=== PATIENT | female | born 1945 | race Caucasian/White ===

== ENCOUNTER 2024-10-29 01:18 | Inpatient (IN) | payer MEDICARE, OTHER ==
[~2024-10-29] VITALS: Ht 167.6 cm; Wt 70.9 kg
--- NOTE | 2024-10-29 01:40 | NUR ---
PT CARE ASSUMED AT THIS TIME
[2024-10-29 01:43] LABS: BASOPHILS # (AUTO) 0.01 K/uL (0.00-0.20); BASOPHILS % (AUTO) 0.1 % (0.0-5.0); EOSINOPHILS % (AUTO) 1.1 % (0.0-8.0); IMMATURE GRANULOCYTE ABSOLUTE 0.01 K/uL (0-1); LYMPHOCYTES # (AUTO) 1.2 K/uL (1.0-4.8); LYMPHOCYTES % (AUTO) 13.4 % (21.0-51.0); MEAN CORPUSCULAR HEMOGLOBIN 31.6 pg (27.0-33.0); MEAN CORPUSCULAR HGB CONC 33.4 g/dL (32.0-36.0); MEAN CORPUSCULAR VOLUME 94.5 fL (79-99); MONOCYTES # (AUTO) 0.6 K/uL (0.1-1.0); MONOCYTES % (AUTO) 6.4 % (3.0-13.0); NEUTROPHILS # (AUTO) 6.9 K/uL (1.8-7.7); NEUTROPHILS % (AUTO) 78.9 % (40.0-77.0); PLATELET COUNT (AUTO) 193 K/uL (130-400); RED BLOOD CELL COUNT(AUTO) 4.34 MIL/uL (4.00-5.50); RED CELL DISTRIBUTION WIDTH 13.8 % (11.0-15.5); WHITE BLOOD COUNT (AUTO) 8.7 K/uL (4.8-10.8)
[2024-10-29] MEDS: morPHINE 4 MG SYG IVP ONE ×2 (01:44→02:29)
--- NOTE | 2024-10-29 01:48 | ERN ---
ED Note History of Present Illness Stated Complaint: RUQ ABDOMINAL PAIN Chief Complaint: Abdominal Pain Time Seen by MD: 01:21 Dictation: The patient is a 79-year-old female patient, a winter resident of [place], with a medical history that includes gastroesophageal reflux disease, Hypertension and the presence of a heart pacemaker, arrived at the emergency department with the chief complaints of right upper quadrant abdominal pain that began three hours prior. The onset of the pain was sudden and characterized as sharp and shooting, with a severity rating of 9 out of 10. The patient noted that there were no factors that aggravated or alleviated the pain. She also reported no symptoms of nausea, vomiting, chest pain, or diarrhea, and she has no prior history of similar episodes or gallstones. Allergies: Coded Allergies: No Known Allergies (Unverified Allergy, Unknown, 10/29/24) Past Medical History Past Medical History: Cancer, GERD, High Cholesterol, Heart Disease, Hypertension Additional Past Medical Hx: HIATAL HERNIA, BREAST CA Surgical History: Pacer/AICD, Other Surgical History Other: MASTECTOMY-RIGHT, BREAST RECONSTRUCTION Review of System Dictation REVIEW OF SYSTEMS CONSTITUTIONAL: Denies fevers, chills, or night sweats. No unintentional weight loss reported. NEUROLOGICAL: Denies headache, amaurosis fugax, motor weakness, sensory deficit, vertigo/spinning sensation, gait abnormalities, or tremors. ENT: No hearing loss, otalgia, otorrhea, rhinitis, rhinorrhea, hoarseness, or sore throat. CARDIOVASCULAR: Denies any exertional angina, dyspnea on exertion, orthopnea, paroxysmal nocturnal dyspnea, palpitations, life-threatening arrhythmias, claudication. PULMONARY: Denies any shortness of breath, cough, phlegm/sputum, hemoptysis, pleuritic chest pain. SLEEP: Denies morning headaches, daytime somnolence or napping. Denies difficulty falling asleep, staying asleep, waking from sleep. Denies knowledge of snoring. GASTROINTESTINAL: RUQ abdominal pain, Denies any type of dysphagia to either liquids or solids. Denies nausea, vomiting, pyrosis, early satiety, diarrhea, constipation, or changes in stool consistency or caliber. Denies coffee-ground emesis, hematemesis, hematochezia, or melanotic stools. GENITOURINARY: Denies frequency, urgency, nocturia, hematuria or incontinence (Storage/Irritative symptoms.) Low urinary stream, straining to void, urinary intermittency or hesitancy, splitting of the voiding stream, terminal dribbling. ENDOCRINOLOGIC: Denies polyuria, polydipsia, polyphagia or heat/cold intolerances. HEMATOLOGIC: Denies thrombophilia/previous clots, or coagulopathy/bleeding disorders. ONCOLOGIC: Denies personal history of malignancy. DERMATOLOGIC: Denies rashes or pruritus. PSYCHIATRIC: Denies any suicidal or homicidal ideation. Denies hallucinations. Initial Vital Sign VS Vital Signs Date Time Temp Pulse Resp B/P (MAP) Pulse Ox O2 Delivery O2 Flow Rate FiO2 10/29/24 01:24 97.7 94 16 155/89 99 Room Air 0 10/29/24 01:40 21 Physical Exam Dictation PHYSICAL EXAM GENERAL APPEARANCE: The patient is awake, alert, and oriented, in no acute cardiopulmonary distress. NEUROLOGICAL: Cranial nerves II-XII grossly intact. Motor is 5/5 in bilateral upper and lower extremities proximal to distal. No sensory deficits. HEENT: Face is symmetric. Pupils are equal and reactive. Extraocular movements are intact. NECK: Supple. No JVD. No thyromegaly. No submental, submandibular, pre- /postauricular, occipital or supraclavicular lymphadenopathy. CHEST: Normal chest expansion. No Telemetry. LUNGS: Absence of any rales, rhonchi or any wheezing. CARDIOVASCULAR: Regular. S1 and S2 normal. No appreciable rubs, murmurs or gallops. ABDOMEN: Gilbert's sign positive, Tenderness present over RUQ, and nondistended. There is no rebound, voluntary guarding, or rigidity. : Deferred. No Ignacio. EXTREMITIES: Non-edematous and not cyanotic. No clubbing. Good capillary refill. SKIN: No skin breakdown. Results (Laboratory/Radiology) Laboratory/Radiology Laboratory Tests Test 10/29/24 01:37 White Blood Count 8.7 K/uL (4.8-10.8) Red Blood Count 4.34 MIL/uL (4.00-5.50) Hemoglobin 13.7 g/dL (12.0-16.0) Hematocrit 41.0 % (36-48) Mean Corpuscular Volume 94.5 fL (79-99) Mean Corpuscular Hemoglobin 31.6 pg (27.0-33.0) Mean Corpuscular Hemoglobin Concent 33.4 g/dL (32.0-36.0) Red Cell Distribution Width 13.8 % (11.0-15.5) Platelet Count 193 K/uL (130-400) Mean Platelet Volume 9.2 fL (7.5-10.5) Immature Granulocyte % (Auto) 0.1 % (0-1) Neutrophils (%) (Auto) 78.9 % (40.0-77.0) H Lymphocytes (%) (Auto) 13.4 % (21.0-51.0) L Monocytes (%) (Auto) 6.4 % (3.0-13.0) Eosinophils (%) (Auto) 1.1 % (0.0-8.0) Basophils (%) (Auto) 0.1 % (0.0-5.0) Neutrophils # (Auto) 6.9 K/uL (1.8-7.7) Lymphocytes # (Auto) 1.2 K/uL (1.0-4.8) Monocytes # (Auto) 0.6 K/uL (0.1-1.0) Eosinophils # (Auto) 0.10 K/uL (0.00-0.70) Basophils # (Auto) 0.01 K/uL (0.00-0.20) Absolute Immature Granulocyte (auto 0.01 K/uL (0-1) Nucleated Red Blood Cells 0.0 % (0.0-0.19) Sodium Level 143 mmol/L (136-145) Potassium Level 4.0 mmol/L (3.5-5.1) Chloride Level 105 mmol/L (101-111) Carbon Dioxide Level 29 mmol/L (21-32) Blood Urea Nitrogen 23 mg/dL (7-18) H Creatinine 0.7 mg/dL (0.5-1.0) Glomerular Filtration Rate Calc 87 mL/min (>90) Random Glucose 109 mg/dL (70-105) H Total Calcium 9.5 mg/dL (8.5-10.1) Total Bilirubin 0.6 mg/dL (0.2-1.0) Direct Bilirubin 0.2 mg/dL (0.0-0.3) Aspartate Amino Transf (AST/SGOT) 21 U/L (10-37) Alanine Aminotransferase (ALT/SGPT) 26 U/L (12-78) Alkaline Phosphatase 90 U/L (50-136) Total Protein 7.4 g/dL (6.0-8.3) Albumin 4.3 g/dL (3.5-5.0) Lipase 20 U/L (16-77) ED Course ED Course Orders Procedure Category Date Status Time Morphine 4mg Syg PHA 10/29/24 Complete (Morphine 4mg Syg) 01:30 Us Abdominal Ruq\Ltd US 10/29/24 Taken 01:27 Cbc With Differential LAB 10/29/24 Complete 01:28 Basic Metabolic Panel LAB 10/29/24 Complete 01:28 Hepatic Function Panel LAB 10/29/24 Complete 01:28 Lipase LAB 10/29/24 Complete 01:28 Urinalysis Profile LAB 10/29/24 Logged 01:29 Keep Patient Npo CPOE 10/29/24 Transmitted 01:30 0.9% Nacl 500ml PHA 10/29/24 Complete Iv.Soln (Ns 500ml 02:30 Morphine 4mg Syg PHA 10/29/24 Complete (Morphine 4mg Syg) 02:30 Fentanyl Citrate Pf PHA 10/29/24 Complete 0.05 Mg/Ml (Fentanyl 04:00 Keep Patient Npo CPOE 10/29/24 Transmitted 04:00 Basic Metabolic Panel LAB 10/29/24 Logged 04:00 Cbc With Differential LAB 10/29/24 Logged 04:00 Magnesium LAB 10/29/24 Logged 04:00 Phosphorus LAB 10/29/24 Logged 04:00 Pt And Ptt LAB 10/29/24 Logged 04:00 Type And Screen BBK 10/29/24 In Process 04:00 General Surgery CONPHYSVC 10/29/24 Transmitted Consult 08:00 Acetaminophen 650mg PHA 10/29/24 In Process Supp (Tylenol 650mg 04:30 Ondansetron 4mg Inj PHA 10/29/24 In Process (Zofran 4mg Inj) 04:30 Lactated Ringers PHA 10/29/24 In Process 1000ml (Lactated 04:30 Hydralazine 20mg Inj PHA 10/29/24 In Process (Apresoline 20mg In 04:30 Famotidine 20mg Vial PHA 10/29/24 In Process (Pepcid 20mg Vial) 09:00 Admit Orders ADM 10/29/24 Transmitted 04:07 Activity: Ad Heidi CPOE 10/29/24 Transmitted 04:07 Apply Knee High Teds CPOE 10/29/24 Transmitted 04:07 Apply Scds CPOE 10/29/24 Transmitted 04:07 Condition: CPOE 10/29/24 Transmitted 04:07 Nurse To Enter Home CPOE 10/29/24 Transmitted Medication 04:07 Oxygen By Nc/Pulse Ox CPOE 10/29/24 Transmitted 04:07 Vital Signs(Adult CPOE 10/29/24 Transmitted Hospitalist) 04:07 Morphine 2mg Syg PHA 10/29/24 In Process (Morphine 2mg Syg) 04:30 Current Medications Medications (Trade) Dose Ordered Sig/Natalie Route PRN Reason Start Time Stop Time Status Last Admin Dose Admin Fentanyl Citrate (FENTanyl CITRate PF 50 MCG/ 1 ML 2ML VIAL) 50 mcg ONCE ONCE IVP 10/29/24 04:00 10/29/24 04:01 DC 10/29/24 03:48 Morphine Sulfate (morPHINE 4MG SYG) 4 mg ONCE ONCE IVP 10/29/24 01:30 10/29/24 01:31 DC 10/29/24 01:44 Morphine Sulfate (morPHINE 4MG SYG) 4 mg ONCE ONCE IVP 10/29/24 02:30 10/29/24 02:31 DC 10/29/24 02:29 Sodium Chloride 500 ml @ 0 mls/hr ONCE ONCE IV 10/29/24 02:30 10/29/24 02:31 DC 10/29/24 02:28 Vital Signs Date Time Temp Pulse Resp B/P (MAP) Pulse Ox O2 Delivery O2 Flow Rate FiO2 10/29/24 04:31 98.4 66 17 111/64 96 Room Air* 0 21 10/29/24 02:43 70 17 125/64 98 Room Air* 0 21 10/29/24 01:40 97.9 69 20 125/73 98 Room Air* 0 21 10/29/24 01:24 97.7 94 16 155/89 99 Room Air 0 01:15 The patient was examined in ED 14. She appears in moderate distress, holding her abdomen and saying that she has a lot of pain. Her vitals are temperature 97.7, pulse rate 94, respiratory rate 16, blood pressure 155/89. Based on the presentation, her symptoms are likely secondary to cholecystitis. We will order right upper quadrant ultrasound and basic labs to confirm the diagnosis. In the meantime we will give IV morphine to help with the pain. We will keep the patient NPO until further recommendations are made. We will continue closely monitor the patient. 03:40- Laboratory results indicated no significant abnormalities. Liver function tests are within normal limits. Abdominal ultrasound indicates the presence of possible gallstones, with a limited view and no evidence of pericholecystic fluid collection. We administered two doses of Morphine at 4 mg each; however, the patient continues to report pain. We will now provide Fentanyl for pain management. The patient remains in discomfort and will need additional diagnostic studies, including a HIDA scan. At this juncture, it appears that inpatient hospitalization will be necessary. The plan was discussed with the mukul lind and she verbalizes understanding. The on-call hospitalist has been notified and has agreed to the admission. Medical Decision Making [facility] MDM Differential diagnosis: Cholelithiasis, RUQ pain Rationale: Tests considered and ordered secondary to shared decision making include: Previous outside records reviewed: Old ER visits. Risk of complication and/or morbidity or mortality of patient management: None Medications-Per medication reconciliation Need for hospitalization: Patient does meet the criteria for hospitalization. Need for emergency major/minor surgery: No There are no social concerns with this patient. Prescription drug management Prescriptions will include symptomatic care Patient's prior external medical records from other ER visits were reviewed by me as indicated. Prior testing and results from previous visits were reviewed. Prior tests were taken into account with medical decision making and resource utilization, independent historian/historians were used to obtain complete medical history. I independently interpreted the test that were performed, results were reviewed by me and considered findings on radiology if ordered. DX & DISP Disposition: Inpatient Departure Impression: Primary Impression: Gallstones Additional Impression: RUQ abdominal pain Condition: Stable Referrals: SELF,REFERRAL (PCP) I have reviewed the case, and I agree with, Diagnosis and Plan I have examined patient, & reviewed all documents, & agreed W/ the Diagnosis, and Plan ATTESTATION BY PHYSICIAN I have seen and examined the patient. I reviewed the documentation, medical decision making, and treatment plan as noted by the resident provider above. I agree with the findings and plan of care. Nayla Greenwood MD, MANALI MD Oct 29, 2024 01:48 GEOVANNA SIERRA DO Oct 29, 2024 04:47
[2024-10-29 01:52] LABS: CREATININE 0.7 mg/dL (0.5-1.0)
[2024-10-29 01:56] LABS: ALBUMIN 4.3 g/dL (3.5-5.0); BILIRUBIN,DIRECT 0.2 mg/dL (0.0-0.3); BILIRUBIN,TOTAL 0.6 mg/dL (0.2-1.0); TOTAL PROTEIN, SERUM 7.4 g/dL (6.0-8.3)
[2024-10-29] MEDS: 0.9% NACL 500ML IV.SOLN 500 ML IV ONE (02:28)
[2024-10-29] MEDS: FENTanyl CITRate PF 50 MCG/1 ML 2ML VIAL IVP ONE (03:48)
--- NOTE | 2024-10-29 04:06 | HP ---
History of Present Illness Reason for Visit: Abdominal pain History of Present Illness Ms. Hines is an 79-year-old female that was seen and examined today on 10/29/2024. Patient is a good historian and personal health. Patient states that she came to the emergency department with a chief complaint of abdominal pain. Location is right upper quadrant. Duration is constant. Character is described as sharp and pads progressed to stabbing. Symptoms are aggravated with eating. There was no alleviating factors. Patient denies any associated nausea or vomiting. Today in the emergency department CBC unremarkable, chemistry unremarkable, no urinalysis has been collected or sent to lab. Abdominal ultrasound is pending radiology interpretation however preliminary report shows cholelithiasis. Emergency room physician recommended that patient be admitted so she could be evaluated by surgeon. Patient actually prefers to have surgery back home in [place] and she is leaving on 11/06/2024. Past Medical History ADDITIONAL PAST MEDICAL HISTORY: [GERD, hyperlipidemia, CAD, hypertension, hiatal hernia, breast CA] SOCIAL HISTORY: [Negative for smoking. Patient drinks two glasses of wine that are 4 oz each every other day. Patient denies drug use.] SURGICAL HISTORY: [AICD, mastectomy right, breast reconstruction] Review of Systems General: No Fever, No Chills, No Night Sweats, No Fatigue, No Malaise, No Appetite, No Other HEENT: No Head Aches, No Visual Changes, No Eye Pain, No Ear Pain, No Dysphasia, No Sinus Congestion, No Post Nasal Drip, No Sore Throat, No Other Pulmonary: No Dyspnea, No Cough, No Pleuritic Chest Pain, No Other Cardiovascular: No: Chest Pain, Palpitations, Orthopnea, Paroxysmal Noc. Dyspnea, Edema, Lt Headedness, Other Gastrointestinal: Abdominal Pain; No: Nausea, Vomiting, Diarrhea, Constipation, Melena, Hematochezia, Other Genitourinary: No Dysuria, No Frequency, No Incontinence, No Hematuria, No Retention, No Other Musculoskeletal: No: other, neck pain, shoulder pain, arm pain, back pain, hand pain, leg pain, foot pain Skin: No Urticaria, No Rash, No Other Neurological: No: Weakness, Numbness, Incoordination, Change in speech, Confusion, Seizures, Other Allergies: Coded Allergies: No Known Allergies (Unverified Allergy, Unknown, 10/29/24) Scheduled Amlodipine Besylate (Amlodipine Besylate), 1 TAB PO DAILY, (Reported) Atorvastatin Calcium (Lipitor), 1 TAB PO DAILY, (Reported) Esomeprazole Magnesium (Esomeprazole Magnesium), 40 MG PO BID, (Reported) Tolterodine Tartrate (Tolterodine Tartrate ER), 4 MG PO DAILY, (Reported) Trazodone HCl (Trazodone HCl), 1 TAB PO HS, (Reported) Exam Vital Signs Vital Signs Date Time Temp Pulse Resp B/P (MAP) Pulse Ox O2 Delivery O2 Flow Rate FiO2 10/29/24 02:43 70 17 125/64 98 Room Air* 0 21 10/29/24 01:40 97.9 General Appearance: Alert, Oriented X3, Cooperative, mild distress HEENT: Atraumatic, EOMI Respiratory: Clear to auscultation, Normal air movement, NL respiratory effort Cardiovascular: Regular rate, Regular rhythm, Normal S1, Normal S2 Abdominal: Normal bowel sounds, Soft, No tenderness Extremities: No edema Skin: No significant lesion Neuro: Normal speech, Strength at 5/5 X4 ext, Sensation intact, Cranial nerves 3-12 NL Psych/Mental Status: Mental status NL, Mood NL, Thoughts/Content NL Assessment/Plan ASSESSMENT: [ Cholelithiasis Hypertension] PLAN: [ Admit patient to medical-surgical floor as inpatient status. Patient will be followed by General surgery Service. Keep patient NPO. Check preprocedure labs, CBC, BMP, magnesium, phosphorus, PTT, UA, type and screen, EKG, CXR As needed analgesia with morphine. IV fluid maintenance therapy lactated Ringer's at 75 mL/HR. Consider resuming home medications once they are reconciled. For now, Hydralazine 10 mg IV every 4 hours for systolic blood pressure greater than 160 mmHg GI prophylaxis, famotidine DVT prophylaxis, Joshua's and SCDs ADVANCED CARE PLANNING 1. Which of the following were discussed? Hospice Care - Yes Therapeutic options - Yes Advance Directives - Yes- patient states she does not have any advance directives in place at this time, however her daughter Noemí stewart can make decisions for her if she becomes unable. Other discussions - patient wishes to remain a full code at this time 2. Discussed with who? Patient 3. Voluntary nature of this service was explained to the patient? Yes 4. Amount of time spent - ____ 16 minutes ___ 5. Reviewed by Physician? (if this service was performed by NPP) Yes This document was generated in part using voice recognition software, occasional wrong word or sound alike substitutions may have occurred due to the inherent limitations of voice recognition software. Read the chart carefully and recognize using context, where the substitutions have occurred. Although every effort was made to edit the content, stone setter metal optical frames and typing errors may occur ADDENDUM: ATTENDING PHYSICIAN ATTESTATION: I have seen and discussed this patient with the midlevel and I agree with their plan. See my addendum for updates to the medical plan MD TIMOTHY Villanueva JOE D [facility] Oct 29, 2024 04:06 BIPIN ISSA MD Oct 29, 2024 16:42
[2024-10-29] MEDS: LACTATED RINGERS 1000ML 1,000 ML IV SCH (04:26)
[2024-10-29] MEDS ORDERED: acetaMINOPHEN 650 MG SUPPOSITORY RC PRN (04:30)
[2024-10-29] MEDS ORDERED: ondanSETRON 4MG INJ IV PRN (04:30)
[2024-10-29] MEDS ORDERED: hydrALAZine 20MG/ML VIAL IV PRN (04:30)
[2024-10-29 04:55] VITALS: BP 143/77; PULSE 75; RESP 19; TEMP 97.8
[2024-10-29 06:10] LABS: BASOPHILS # (AUTO) 0.01 K/uL (0.00-0.20); BASOPHILS % (AUTO) 0.1 % (0.0-5.0); EOSINOPHILS # (AUTO) 0.07 K/uL (0.00-0.70); HEMATOCRIT 34.8 % (36-48); IMMATURE GRANULOCYTE ABSOLUTE 0.02 K/uL (0-1); LYMPHOCYTES % (AUTO) 14.2 % (21.0-51.0); MEAN CORPUSCULAR HEMOGLOBIN 31.9 pg (27.0-33.0); MEAN CORPUSCULAR HGB CONC 33.3 g/dL (32.0-36.0); MEAN CORPUSCULAR VOLUME 95.6 fL (79-99); MONOCYTES # (AUTO) 0.6 K/uL (0.1-1.0); MONOCYTES % (AUTO) 9.3 % (3.0-13.0); NEUTROPHILS # (AUTO) 5.1 K/uL (1.8-7.7); NEUTROPHILS % (AUTO) 75.1 % (40.0-77.0); PLATELET COUNT (AUTO) 139 K/uL (130-400); RED BLOOD CELL COUNT(AUTO) 3.64 MIL/uL (4.00-5.50); RED CELL DISTRIBUTION WIDTH 13.8 % (11.0-15.5); WHITE BLOOD COUNT (AUTO) 6.8 K/uL (4.8-10.8)
[2024-10-29] MEDS ORDERED: AMLO-258 PO (06:13)
[2024-10-29] MEDS ORDERED: ATOR10 PO (06:13)
[2024-10-29] MEDS ORDERED: ESOM40CA66 PO (06:14)
[2024-10-29] MEDS ORDERED: TOLT4CAP27 PO (06:16)
[2024-10-29 06:20] VITALS: O2SAT 99
[2024-10-29 06:25] LABS: CREATININE 0.6 mg/dL (0.5-1.0); MAGNESIUM 1.8 mg/dL (1.80-2.40); PHOSPHORUS 4.1 mg/dL (2.5-4.9)
[2024-10-29 06:26] LABS: INR 0.96 (0.85-1.15); PROTHROMBIN TIME 10.8 SEC (9.6-11.6)
[2024-10-29 06:28] LABS: PARTIAL THROMBOPLASTIN TIME 25.8 SEC (26.3-35.5)
[2024-10-29] MEDS: FAMOTIDINE 20MG VIAL IV SCH (07:48)
[2024-10-29 08:00] VITALS: BP 145/74; PULSE 65; RESP 18; TEMP 97.7
--- NOTE | 2024-10-29 08:29 | HMCIMG ---
3. Otherwise unremarkable exam although the pancreas was not visualized. HISTORY: RUQ pain COMPARISON: None FINDINGS: There is mild fatty infiltration of the liver. There are no focal liver masses. The liver is not enlarged.Gallbladder is nondistended. There is no wall thickening or edema. There is some acoustical shadowing from the posterior wall of the gallbladder causing difficulty in excluding small stones. Common duct is normal at 2 mm.. Right kidney is normal with no evidence of mass, hydronephrosis or stone.The pancreas is obscured by overlying bowel gas. IMPRESSION: 1. Mild hepatic steatosis. 2. No definite stones identified, there is acoustical shadowing from the posterior wall of the gallbladder suggesting possible very small stones, there is no wall thickening or edema.
--- NOTE | 2024-10-29 08:44 | NUR ---
GENERAL SURGERY CONSULT SPOKE WITH DR. SCHMITT'S OFFICE REGARDING NEW CONSULT FOR PATIENT. PROVIDED NECESSARY INFORMATION AND CALLBACK NUMBER TO OFFICE. PER OFFICE STAFF, DR. SCHMITT WILL BE PAGED. PENDING CALLBACK FROM DR. SCHMITT.
[2024-10-29] MEDS: morPHINE 2 MG SYG IVP PRN (09:56)
--- NOTE | 2024-10-29 10:30 | NUR ---
DCP Patient states visiting friends at [place] from [place], currently staying at a two story condo but has a room downstairs and a walk in shower with Flaco Connors, Boyfriend [phone]. She was planning on returning home tomorrow. States retired, remains independent usually lives alone and drives self. States able to complete ADL's on her own. Denies use of medical devices, other than hearing aids. Denies home health services, provider services or dialysis. PCP - In [place], Negin Patino [phone] Pharmacy - [facility]. Upon discharge, Flaco Connors, Boyfriend [phone] back to the condo. In case of an emergency, contact Noemí Gayle, daughter [phone] and she can also contact her son, who may be able to make decisions, if needed. At this time, does not foresee additional needs or services. Requests to have insurance verified for coverage, notified assigned CM. Addendum: 10/29/24 at 1043 by NATALIIA JETT RN CM Amended: Links added.
[2024-10-29] MEDS: ketOROlac 15MG/ML VIAL (15MG/ML) IV PRN (11:05)
[2024-10-29 12:00] VITALS: BP 124/76; PULSE 71; RESP 20; TEMP 98.4
--- NOTE | 2024-10-29 12:16 | HMCIMG ---
CT CHEST ABDOMEN W/O CONTRAST REASON: RIGHT UPPER QUADRANT PAIN, CONCERN FOR BONE METS, INCLUDE BONE WINDOW COMPARISON: None TECHNIQUE: Axial images are obtained from thoracic inlet through the iliac crests without oral or IV contrast. FINDINGS: Lungs are clear. There are no pulmonary nodules. There is normal pulmonary interstitial pattern. Hilar and mediastinal structures appear unremarkable. There are implants in place without evidence of rupture. Chest wall structures appear otherwise normal. This includes normal appearing osseous structures, the sternum, the thoracic vertebral bodies and the ribs appear unremarkable. There are no focal liver lesions. Spleen, kidneys, pancreas and gallbladder appear unremarkable as do visualized bowel loops. Anterior abdominal wall appears intact. Visualized lumbar vertebral bodies are unremarkable. There are no focal osseous lesions to suggest metastatic disease. IMPRESSION: 1. Unremarkable noncontrast CT chest and abdomen. 2. Specific attention shows no evidence of metastatic disease.
--- NOTE | 2024-10-29 14:14 | NUR ---
Patient requested insurance verification due to being from out of state and in case she needed additional procedures and treatment performed. Referred her to [employer] [phone]. notified Sangeetha GONZALEZ of patient information and request. Addendum: 10/29/24 at 1423 by NATALIIA JETT RN CM Amended: Links added.
[2024-10-29] MEDS ORDERED: TRAZ-185 PO (15:58)
[2024-10-29 16:00] VITALS: BP 136/88; PULSE 70; RESP 20; TEMP 97.9
[2024-10-29] MEDS: MAGNESIUM 2GM PREMIX 50ML 50 ML IV PRN (16:38)
--- NOTE | 2024-10-29 17:12 | CONS ---
CONSULT NOTE: Consulting physician:Dr Benitez Consulting service: General surgery Reason for consultation: Right upper quadrant pain History of present illness: This 79-year-old female with a medical history listed below who has been consulted to surgery after presenting to the hospital with a chief complaint of abdominal pain. Patient reports that pain began yesterday evening. Patient reports pain as a sharp stabbing pain. Patient reports that pain aggravated with meal. Patient with no previous abdominal surgeries reported. Patient presented to the hospital and upon workup imaging performed concern for possible cholelithiasis. Patient also send for CT with no real concerns noted. On physical exam patient continues with the upper quadrant pain requiring medication for management. LFTs unremarkable. Patient currently NPO. Family at bedside Medical history: ADDITIONAL PAST MEDICAL HISTORY: GERD, hyperlipidemia, CAD, hypertension, hiatal hernia, breast CA SOCIAL HISTORY: Negative for smoking. Patient drinks two glasses of wine that are 4 oz each every other day. Patient denies drug use. SURGICAL HISTORY: AICD, mastectomy right, breast reconstruction Review of systems: General: No Fever, No Chills, No Night Sweats, No Fatigue, No Malaise, No Appetite, No Other HEENT: No Head Aches, No Visual Changes, No Eye Pain, No Ear Pain, No Dysphasia, No Sinus Congestion, No Post Nasal Drip, No Sore Throat, No Other Pulmonary: No Dyspnea, No Cough, No Pleuritic Chest Pain, No Other Cardiovascular: No: Chest Pain, Palpitations, Orthopnea, Paroxysmal No Dyspnea, Edema, Lt Headedness, Other Gastrointestinal: No: Nausea, Vomiting, Diarrhea, Constipation, Melena, Hematochezia, Other Genitourinary: No Dysuria, No Frequency, No Incontinence, No Hematuria, No Retention, No Other Musculoskeletal: No: other, neck pain, shoulder pain, arm pain, back pain, hand pain, leg pain, foot pain Skin: No Urticaria, No Rash, No Other Neurological: No: Weakness, Numbness, Incoordination, Change in speech, Confusion, Seizures, Other Physical exam: General: Awake alert and oriented Heart: Regular rate and rhythm} Lungs: [Clear to auscultation no distress Abdomen: Continued right upper quadrant pain with flank pain Assessment: This is a 79-year-old female with unknown etiology of right upper quadrant pain Plan: At this point in time with negative CT and ultrasound we will order HIDA scan to rule out any further concerns for acute cholecystitis with the patient's continued right upper quadrant pain Patient to remain NPO with imaging to be completed today If unable to be completed today patient to be allowed clear liquid diet and NPO at midnight for preparation for study to be performed tomorrow Patient to continue with IV fluids and current pain management Doctor Leeroy to be updated in patient's status and surgical team to follow patient closely DALE MCFARLAND Jr. Oct 29, 2024 17:12
[2024-10-29 20:00] VITALS: BP 119/60; PULSE 69; RESP 18; TEMP 98.7
[2024-10-29] MEDS: trAZOdone HCL 50 MG TAB PO SCH (21:23)
[2024-10-30] VITALS: BP 130/72; PULSE 73; RESP 18; TEMP 98
[2024-10-30 04:00] VITALS: BP 126/71; PULSE 71; RESP 18; TEMP 98.1
[2024-10-30 08:00] VITALS: BP 140/77; PULSE 71; RESP 18; TEMP 97.9
--- NOTE | 2024-10-30 08:43 | HMCIMG ---
NM HIDA/HEPATOBILI W/ PHARMACO REASON: ABDOMINAL PAIN COMPARISON: None TECHNIQUE: Routine hepatobiliary scan images were acquired following injection of 7 mCi technetium 99m Choletec. Gallbladder ejection fraction was performed following administration of 1.4 mcg CCK. FINDINGS: There is prompt hepatic parenchymal uptake. There is prompt excretion of the common duct and gallbladder. There is near complete clearing of hepatic activity by one hour. These findings constitute a normal hepatobiliary scan. Gallbladder ejection time activity curve yields a 16% ejection fraction. This is abnormal, lower limit of normal is 35%. IMPRESSION: 1. Normal hepatobiliary scan. 2. Abnormal ejection fraction of 16%.
[2024-10-30 09:18] VITALS: O2SAT 96
[2024-10-30] MEDS: atorVAStatin 10 MG TABLET PO SCH (09:18)
[2024-10-30] MEDS: amLODIPine 5 MG TAB PO SCH (09:18)
[2024-10-30 12:00] VITALS: BP 145/76; PULSE 75; RESP 18; TEMP 97.6
[2024-10-30] MEDS: acetaMINOPHEN 325 MG TAB PO PRN (13:06)
--- NOTE | 2024-10-30 14:55 | PN ---
GENERAL SURGERY PROGRESS NOTE Date/Time Patient Seen: 10/30/24 1300 Problem List: right rib pain Interval History: Patient reports that her pain has improved. She is tolerating a diet. Current Medications Medications (Trade) Dose Ordered Sig/Natalie Route Start Time Stop Time Status Last Admin Dose Admin Amlodipine Besylate (NorvASC 5MG TAB) 10 mg DAILY PO 10/30/24 09:00 11/29/24 08:59 10/30/24 09:18 10 MG Atorvastatin Calcium (LIPItor 10MG) 10 mg DAILY PO 10/30/24 09:00 10/30/24 10:36 DC 10/30/24 09:18 10 MG Atorvastatin Calcium (LIPItor 10MG) 10 mg HS PO 10/31/24 21:00 11/29/24 08:59 Famotidine (Pepcid 20mg Vial) 20 mg DAILY IV 10/29/24 09:00 11/28/24 08:59 10/30/24 09:18 20 MG Lactated Ringer's 1,000 ml @ 75 mls/hr [id number] IV 10/29/24 04:30 11/28/24 04:29 10/29/24 04:26 75 MLS/HR Lidocaine (Lidocaine Patch 4%) 1 each DAILY TP 10/30/24 15:00 11/29/24 14:59 Trazodone HCl (DesyREL/OlepTRO) 50 mg HS PO 10/29/24 21:00 11/28/24 20:59 10/29/24 21:23 50 MG Physical Examination: GENERAL: [No acute distress.] HEAD: [Normal with no signs of head trauma.] EYES: [PERRLA, EOMI, conjunctiva and sclera normal.] LUNGS: Respirations non-labored HEART: Regular rate and rhythm ABD: Soft, non-tender, non-distended, no rebound or guarding, right ribs with point tenderness : [Not examined] EXT: [No clubbing, cyanosis or edema.] SKIN: [No rashes or lesions noted.] NEURO: [Awake, alert, and oriented x3. No focal sensory or strength deficits noted.] Vital Signs (last 8hr) Date Time Temp Pulse Resp B/P (MAP) Pulse Ox O2 Delivery O2 Flow Rate FiO2 10/30/24 12:00 97.5 75 18 145/76 97 Room Air 2/21/25 08:00 97.9 71 18 140/77 96 Room Air Laboratory: Hematology Labs: Test 10/29/24 06:01 Range/Units White Blood Count 6.8 4.8-10.8 K/uL Red Blood Count 3.64 L 4.00-5.50 MIL/uL Hemoglobin 11.6 L 12.0-16.0 g/dL Hematocrit 34.8 L 36-48 % Mean Corpuscular Volume 95.6 79-99 fL Mean Corpuscular Hemoglobin 31.9 27.0-33.0 pg Mean Corpuscular Hemoglobin Concent 33.3 32.0-36.0 g/dL Red Cell Distribution Width 13.8 11.0-15.5 % Platelet Count 139 # 130-400 K/uL Mean Platelet Volume 9.1 7.5-10.5 fL Immature Granulocyte % (Auto) 0.3 0-1 % Neutrophils (%) (Auto) 75.1 40.0-77.0 % Lymphocytes (%) (Auto) 14.2 L 21.0-51.0 % Monocytes (%) (Auto) 9.3 3.0-13.0 % Eosinophils (%) (Auto) 1.0 0.0-8.0 % Basophils (%) (Auto) 0.1 0.0-5.0 % Neutrophils # (Auto) 5.1 1.8-7.7 K/uL Lymphocytes # (Auto) 1.0 1.0-4.8 K/uL Monocytes # (Auto) 0.6 0.1-1.0 K/uL Eosinophils # (Auto) 0.07 0.00-0.70 K/uL Basophils # (Auto) 0.01 0.00-0.20 K/uL Absolute Immature Granulocyte (auto 0.02 0-1 K/uL Nucleated Red Blood Cells 0.0 0.0-0.19 % Chemistry Labs: Test 10/29/24 06:01 10/29/24 01:37 Range/Units Sodium Level 144 136-145 mmol/L Potassium Level 4.0 3.5-5.1 mmol/L Chloride Level 110 101-111 mmol/L Carbon Dioxide Level 28 21-32 mmol/L Blood Urea Nitrogen 20 H 7-18 mg/dL Creatinine 0.6 0.5-1.0 mg/dL Glomerular Filtration Rate Calc 90 >90 mL/min Random Glucose 102 70-105 mg/dL Total Calcium 8.5 8.5-10.1 mg/dL Phosphorus Level 4.1 2.5-4.9 mg/dL Magnesium Level 1.80 1.80-2.40 mg/dL Total Bilirubin 0.6 0.2-1.0 mg/dL Direct Bilirubin 0.2 0.0-0.3 mg/dL Aspartate Amino Transf (AST/SGOT) 21 10-37 U/L Alanine Aminotransferase (ALT/SGPT) 26 12-78 U/L Alkaline Phosphatase 90 50-136 U/L Total Protein 7.4 6.0-8.3 g/dL Albumin 4.3 3.5-5.0 g/dL Lipase 20 16-77 U/L Coagulation Labs: Test 10/29/24 06:01 Range/Units Prothrombin Time 10.8 9.6-11.6 SEC Prothromb Time International Ratio 0.96 0.85-1.15 Activated Partial Thromboplast Time 25.8 L 26.3-35.5 SEC Diagnostics / Radiology: PATIENT: HENRRY BURRIS MR#: [id number] : 1945 SEX: F AGE: 79 LOCATION: [facility] ORDER 44 STATUS: ADM IN REPORT#: [id number] SERVICE 41 REASON: ABDOMINAL PAIN ORDERING PHYSICIAN: DALE MCFARLAND Jr. PROCEDURE: HIDA PHARM - NM HIDA/HEPATOBILI W/ PHARMACO NM HIDA/HEPATOBILI W/ PHARMACO REASON: ABDOMINAL PAIN COMPARISON: None TECHNIQUE: Routine hepatobiliary scan images were acquired following injection of 7 mCi technetium 99m Choletec. Gallbladder ejection fraction was performed following administration of 1.4 mcg CCK. FINDINGS: There is prompt hepatic parenchymal uptake. There is prompt excretion of the common duct and gallbladder. There is near complete clearing of hepatic activity by one hour. These findings constitute a normal hepatobiliary scan. Gallbladder ejection time activity curve yields a 16% ejection fraction. This is abnormal, lower limit of normal is 35%. IMPRESSION: 1. Normal hepatobiliary scan. 2. Abnormal ejection fraction of 16%. DICTATED BY: INOCENCIO WERNER MD DATE: 10/30/2440 ELECTRONICALLY SIGNED BY: INOCENCIO WERNER MD DATE: 10/30/2443 PATIENT: HENRRY BURRIS MR#: [id number] : 1945 SEX: F AGE: 79 LOCATION: [facility] ORDER 105 STATUS: ADM IN REPORT#: [id number] SERVICE [id number] REASON: RIGHT UPPER QUADRANT PAIN, CONCERN FOR BONE METS, INCLUDE BONE WINDOW ORDERING PHYSICIAN: BIPIN ISSA MD PROCEDURE: CHESTAB WO - CT CHEST ABDOMEN W/O CONTRAST CT CHEST ABDOMEN W/O CONTRAST REASON: RIGHT UPPER QUADRANT PAIN, CONCERN FOR BONE METS, INCLUDE BONE WINDOW COMPARISON: None TECHNIQUE: Axial images are obtained from thoracic inlet through the iliac crests without oral or IV contrast. FINDINGS: Lungs are clear. There are no pulmonary nodules. There is normal pulmonary interstitial pattern. Hilar and mediastinal structures appear unremarkable. There are implants in place without evidence of rupture. Chest wall structures appear otherwise normal. This includes normal appearing osseous structures, the sternum, the thoracic vertebral bodies and the ribs appear unremarkable. There are no focal liver lesions. Spleen, kidneys, pancreas and gallbladder appear unremarkable as do visualized bowel loops. Anterior abdominal wall appears intact. Visualized lumbar vertebral bodies are unremarkable. There are no focal osseous lesions to suggest metastatic disease. IMPRESSION: 1. Unremarkable noncontrast CT chest and abdomen. 2. Specific attention shows no evidence of metastatic disease. DICTATED BY: INOCENCIO WERNER MD DATE: 10/29/24 1212 ELECTRONICALLY SIGNED BY: INOCENCIO WERNER MD DATE: 10/29/246 Impression and Plan: This is an 79 year old female with right rib pain likely due to muscle strain. Improving. HIDA scan performed this morning showed decreased EF of gallbladder would not likely cause this pain. CT c/a/p was unremarkable. Will add lidocaine patch to help with pain control. No acute operative intervention indicated. Patient is ok for discharge from a surgical standpoint. May follow up to discuss surgical options for gallbladder dyskinesia. ANGELA SCHMITT DO Oct 30, 2024 14:55
[2024-10-30] MEDS: LIDOCAINE 4% ADH..PATCH TP SCH (15:48)
[2024-10-30] MEDS ORDERED: LIDO1ADH82 TP (16:23)
--- NOTE | 2024-10-30 16:49 | DS ---
Discharge Summary Hospital Course Summary: 79 yo F presented with severe right upper quadrant pain, abdominal ultrasound showed cholelithiasis, patient was admitted and general surgery was consulted. The following day repeat labs were ordered, they were not consistent with biliary disease. On physical exam the patient was tender to palpation in right upper quadrant, however the pain was more localized to her rib cage with exquisite point tenderness. A CT of the chest with a bone window was ordered, however there were no abnormalities noted. A HIDA scan was ordered, there were no abnormalities suggesting biliary dyskinesia or cholecystitis. The following day, her pain was improving, she was cleared by general surgery. She will be discharged with a lidocaine patch to follow up with her PCP in 3-7 days [employer] Educator(s): General Surgery Procedure(s): NM HIDA/HEPATOBILI W/ PHARMACO REASON: ABDOMINAL PAIN COMPARISON: None TECHNIQUE: Routine hepatobiliary scan images were acquired following injection of 7 mCi technetium 99m Choletec. Gallbladder ejection fraction was performed following administration of 1.4 mcg CCK. FINDINGS: There is prompt hepatic parenchymal uptake. There is prompt excretion of the common duct and gallbladder. There is near complete clearing of hepatic activity by one hour. These findings constitute a normal hepatobiliary scan. Gallbladder ejection time activity curve yields a 16% ejection fraction. This is abnormal, lower limit of normal is 35%. IMPRESSION: 1. Normal hepatobiliary scan. 2. Abnormal ejection fraction of 16%. CT CHEST ABDOMEN W/O CONTRAST REASON: RIGHT UPPER QUADRANT PAIN, CONCERN FOR BONE METS, INCLUDE BONE WINDOW COMPARISON: None TECHNIQUE: Axial images are obtained from thoracic inlet through the iliac crests without oral or IV contrast. FINDINGS: Lungs are clear. There are no pulmonary nodules. There is normal pulmonary interstitial pattern. Hilar and mediastinal structures appear unremarkable. There are implants in place without evidence of rupture. Chest wall structures appear otherwise normal. This includes normal appearing osseous structures, the sternum, the thoracic vertebral bodies and the ribs appear unremarkable. There are no focal liver lesions. Spleen, kidneys, pancreas and gallbladder appear unremarkable as do visualized bowel loops. Anterior abdominal wall appears intact. Visualized lumbar vertebral bodies are unremarkable. There are no focal osseous lesions to suggest metastatic disease. IMPRESSION: 1. Unremarkable noncontrast CT chest and abdomen. 2. Specific attention shows no evidence of metastatic disease. 3. Otherwise unremarkable exam although the pancreas was not visualized. HISTORY: RUQ pain COMPARISON: None FINDINGS: There is mild fatty infiltration of the liver. There are no focal liver masses. The liver is not enlarged.Gallbladder is nondistended. There is no wall thickening or edema. There is some acoustical shadowing from the posterior wall of the gallbladder causing difficulty in excluding small stones. Common duct is normal at 2 mm.. Right kidney is normal with no evidence of mass, hydronephrosis or stone.The pancreas is obscured by overlying bowel gas. IMPRESSION: 1. Mild hepatic steatosis. 2. No definite stones identified, there is acoustical shadowing from the posterior wall of the gallbladder suggesting possible very small stones, there is no wall thickening or edema. Assessment/Plan: Muskuloskeletal pain Right rib pain Cholelithiasis Hypertension Discharge Instructions: Follow up with PCP in 3-7 days Home Medications: Reported Medications Trazodone HCl (Trazodone HCl) 50 Mg Tablet, 1 TAB PO HS for 30 Days, #30 TAB 0 Refills 10/29/24 Tolterodine Tartrate (Tolterodine Tartrate ER) 4 Mg Cap.er.24h, 4 MG PO DAILY, CAPSULE. 10/29/24 Esomeprazole Magnesium (Esomeprazole Magnesium) 40 Mg Capsule.dr, 40 MG PO BID, CAP 10/29/24 Amlodipine Besylate (Amlodipine Besylate) 10 Mg Tablet, 1 TAB PO DAILY for 30 Days, #30 TAB 0 Refills 10/29/24 Atorvastatin Calcium (LIPITOR) 20 Mg Tab, 1 TAB PO DAILY for 30 Days, #30 TAB 0 Refills 10/29/24 New Medications: Lidocaine (Lidocaine) 4 % Adh..patch 1 PATCH TP DAILY for 30 Days, #30 PATCH 0 Refills Continued Medications: Amlodipine Besylate (Amlodipine Besylate) 10 Mg Tablet 1 TAB PO DAILY for 30 Days, #30 TAB 0 Refills Atorvastatin Calcium (Lipitor) 20 Mg Tab 1 TAB PO DAILY for 30 Days, #30 TAB 0 Refills Esomeprazole Magnesium (Esomeprazole Magnesium) 40 Mg Capsule.dr 40 MG PO BID, CAP Tolterodine Tartrate (Tolterodine Tartrate ER) 4 Mg Cap.er.24h 4 MG PO DAILY, CAPSULE. Trazodone HCl (Trazodone HCl) 50 Mg Tablet 1 TAB PO HS for 30 Days, #30 TAB 0 Refills Time spent arranging discharge: 31-60 minutes BIPIN ISSA MDb 21, 2025 16:49
--- NOTE | 2024-10-30 17:14 | NUR ---
DISCHARGE PIV DC'D PATIENT AWARE OF PRESCRIPTION SENT TO PHARMACY ALL QUESTIONS ANSWERED PRIOR TO DISCHARGE
[2024-10-31] MEDS ORDERED: atorVAStatin 10 MG TABLET PO SCH (21:00)
== END 2024-10-30 17:30 | disposition home or self-care (01) | DRG 446 ==
LOC: EDH 01:18 → EDHIP 04:07 → 3DH 04:51
PROVIDERS: ADMIT Internal Medicine; ATTEND Internal Medicine
DX: K80.20 Calculus of gallbladder without cholecystitis without obstruction (principal); I10 Essential (primary) hypertension; E78.00 Pure hypercholesterolemia, unspecified; I25.10 Atherosclerotic heart disease of native coronary artery without angina pectoris; K21.9 Gastro-esophageal reflux disease without esophagitis; E78.5 Hyperlipidemia, unspecified; R07.81 Pleurodynia; Z85.3 Personal history of malignant neoplasm of breast; Z79.899 Other long term (current) drug therapy
CPT/HCPCS: 36415; 71250; 74150; 76705; 78227; 80048; 80076; 83690; 83735; 84100; 85025; 85610; 85730; 86850; 86900; 86901; 99285; A9537; G0378; J1885; J2270; J3010; J3475; J3490; J7040; J7120